=== PATIENT | male | born 1950 | race African-American/Black ===

== ENCOUNTER 2016-11-29 22:54 | Inpatient (IN) ==
[2016-11-30] MEDS ORDERED: PANTOPRAZOLE 40 MG VIAL IV STA (00:30)
[2016-11-30] MEDS ORDERED: PANTOPRAZOLE 40 MG VIAL IV ONE (00:54)
[2016-11-30 00:59] LABS: Basophils % 0.3 % (0.0-0.8); Eosinophils % 0.4 % (0.00-10.9); Hematocrit 21.8 VOL% (42.0-52.0); Immature Granulocytes % 1.5 %; Lymphocytes # 0.5 10*3/uL (1.4-4.0); Lymphocytes % 7.6 % (21.2-54.2); Mean Corpuscular HGB Conc 26.1 GM/DL (32-36); Mean Corpuscular Hemoglobin 19 PG (27-34); Mean Platelet Volume 9.5 FL (9.6-12.0); Monocytes # 0.1 10*3/uL (0.11-0.8); Monocytes % 1.2 % (1.7-12.7); NRBC # 0.03 10*3/uL; Neutrophils # 6.1 10*3/uL (1.4-7.4); Platelet Count 255 T/CUMM (130-400); Red Blood Count 3.07 MC/CUMM (3.8-5.5); Red Cell Distribution Width 22.2 % (9.3-17.3); White Blood Count 6.8 T/CUMM (4-12)
[2016-11-30 01:05] LABS: PT Patient Result 10.5 SECS; Partial Thromboplastin Time < 21.0 SECS (0-40)
[2016-11-30 01:06] LABS: Hemoglobin 5.7 GM/DL (14.0-18.0)
--- NOTE | 2016-11-30 01:13 | EKG Report ---
Stationary ECG Study [facility] ER Test Date: 11/30/2016 1:11:31 AM Pat Name: EDI ALVAREZ Department: Room: 436 Gender: M Side Trimmer: : 1950 Requested by: Michela Buchanan Order Number: [id number] Reading MD: MANOHAR MACK Intervals [place] Rate: 72 P: 59 MS: 161 QRS: 89 QRSD: 98 T: 174 QT: 394 QTc: 418 Interpretive Statements SINUS RHYTHM SEPTAL MYOCARDIAL INFARCTION, OF INDETERMINATE AGE MODERATE T-WAVE ABNORMALITY, CONSIDER ANTEROLATERAL ISCHEMIA Electronically Signed On 11-30-16 21:06:21 CDT by MANOHAR MACK [email or web address]
[2016-11-30 01:16] LABS: Alanine Aminotransferase 22 U/L (16-61); Albumin 4.1 G/DL (3.4-5.0); Alkaline Phosphatase 83 U/L (45-117); Aspartate Amino Transferase 38 U/L (0-37); Bilirubin,Total < 0.39 MG/DL (0.2-1.0); Blood Urea Nitrogen 34 MG/DL (7-18); Glucose 136 MG/DL (74-106); Magnesium 2.6 MG/DL (1.8-2.4); Sodium 146 MMOL/L (136-145); Total Protein 7.3 G/DL (6.4-8.3)
[2016-11-30 01:17] LABS: Osmolality,Calculated 299.6 MOS/KG (273-304); Potassium 5.2 MMOL/L (3.5-5.1)
[2016-11-30] MEDS ORDERED: SODIUM CHLORIDE 0.9% 250 ML IV PRN (01:49)
[2016-11-30] MEDS ORDERED: ONDANSETRON 4 MG/2 ML VIAL IV PRN (01:50)
--- NOTE | 2016-11-30 01:57 | Emergency Department Note ---
Jennifer Shoemaker Hilary, am scribing for, and in the presence of, Michela Bucahnan DO 01:26. Dewayne Shoemaker Catherine, DO, personally performed the services described in this documentation, ascribed by Herminia Rodriguez in my presence, and it is both accurate and complete 153 . Arrival - Arrival Chief Complaint: GI Bleed/Rectal ED Nursing Triage Note: C/O Anemia/GI bleeding. Onset 2 weeks ago. Pt was seen and evaluated at [facility] and was transferred for further evaluation Mode of Arrival: Stretcher Limitations: No Limitations Source: Patient, Old Records Reviewed Time Seen by Provider: 11/29/16 23:52 - History of Present Illness HPI Narrative: Patient is a 66 year old black Male presenting to the ED via EMS with complaint of trouble breathing and blood in his stool. HPI is limited due to currently chewing tobacco and is hard to understand. Patient confirms weakness, "dizziness ", passing out and hematemesis. Patient has a PMH of HTN, frequent EtOH use, former smoker and current chewing tobacco user. Pt was seen and evaluated at [facility] and was transferred for further evaluation. No other complaints or problems reported in the ED. Severity: moderate Quality: cramping Allergies/Adverse Reactions: Allergies Allergy/AdvReac Type Severity Reaction Status Date / Time No Known Allergies Allergy Verified 11/29/16 23:05 Home Medications: Home Medications Medication Instructions Recorded Confirmed Type ALPRAZolam [Xanax] 0.5 mg PO BEDTIME 11/29/16 11/29/16 History Albuterol Inhaler [Proventil 2 puff INH Q6H PRN 11/29/16 11/29/16 History Inhaler] Aspirin [Ecotrin] 81 mg PO DAILY 11/29/16 11/29/16 History Carvedilol [Coreg] 6.25 mg PO BID 11/29/16 11/29/16 History Lisinopril/Hydrochlorothiazide 1 each PO BID 11/29/16 11/29/16 History [Lisinopril-Hctz 10-12.5 mg Tab] Omeprazole 20 mg PO DAILY 11/29/16 11/29/16 History Phenytoin ER Cap [Dilantin Cap] 200 mg PO BID 11/29/16 11/29/16 History Simvastatin 40 mg PO DAILY 11/29/16 11/29/16 History Tramadol HCl [Tramadol Tab] 50 mg PO BID 11/29/16 11/29/16 History amLODIPine [Norvasc] 10 mg PO DAILY 11/29/16 11/29/16 History hydrALAZINE TAB [Apresoline Tab] 50 mg PO BID 11/29/16 11/29/16 History Review of System - Review of System 12 point system: reviewed and no additional remarkable complaints except as stated - Review of System Constitutional: Absent: diaphoresis, fever, weakness Eyes: Absent: discharge Head/Ears/Nose/Throat: Absent: earache Respiratory: Absent: cough, respiratory distress, wheezing Cardiovascular: Absent: chest pain Gastrointestinal: Present: nausea, hematemesis, melena. Absent: vomiting Genitourinary male: Absent: urgency, dysuria, frequency Skin: Absent: rash, lesions Neurological: Present: weakness, vertigo, other (dizziness) Psychiatric: Present: anxiety Medical,Surgical,& Family Hx - Medical History Cardio: History of: Hypertension Respiratory: History of: COPD - Surgical History Surgical History: noncontributory - Family History Family History: noncontributory - Social History Smoking Status: Former smoker Frequency of Alcohol Use: Frequently Type of Drug Use: None Marital Status: Unknown Functional capacity: independent ambulation Exam Vital Signs: Vital Signs Temperature 98.3 F 11/29/16 22:57 Pulse Rate 91 H 11/29/16 22:57 Respiratory Rate 22 11/29/16 22:57 Blood Pressure 138/71 11/29/16 22:57 O2 Sat by Pulse Oximetry 90 L 11/29/16 22:57 - General General appearance: alert, in no apparent distress - Head Head exam: Present: atraumatic, normocephalic - Eye Eye exam: Present: normal appearance, PERRL, EOMI - ENT ENT exam: Present: mucous membranes moist, TM's normal bilaterally - Neck Neck exam: Present: full ROM, trachea midline. Absent: tenderness, meningismus , lymphadenopathy, thyromegaly - Chest Chest inspection: Present: symmetric chest wall rise. Absent: tenderness, rash - Respiratory Respiratory exam: Present: normal lung sounds bilaterally. Absent: respiratory distress - Cardiovascular Cardiovascular exam: Present: regular rate, normal rhythm, normal heart sounds. Absent: murmur, rubs, gallop - Abdominal Exam Abdominal exam: Present: soft, normal bowel sounds. Absent: distention, tenderness, guarding, rebound, organomegaly - Extremities Exam Extremities exam: Present: full ROM, normal capillary refill. Absent: tenderness, pedal edema, calf tenderness - Back Exam Back exam: Present: full ROM. Absent: tenderness - Neurological Exam Neurological exam: Present: alert, oriented X3, CN II-XII intact. Absent: motor sensory deficit - Psychiatric Psychiatric exam: Present: normal affect, flat affect - Skin Skin exam: Present: warm, dry, intact, normal color Course Course Narrative: This is a 66-year-old male who was transferred to the hospital today for admission and evaluation of a possible GI bleed. He presented to another facility for weakness was found to have a low hemoglobin and hematocrit. The patient had a full workup at the prior hospital. At that time his rectal was negative for cold blood. The patient also has COPD he was treated for that at the prior facility. At my evaluation he is somewhat difficult historian and hard to understand but offers no specific complaint. He does report some dizziness with activity. Physical exam his vital signs are stable H HEENT exam is normal he has a mouthful of chewing tobacco at the time of my exam his neck is supple heart is regular rate and rhythm his lungs are clear abdomen is rounded soft is very minimal tenderness pain there's no rebound or guarding his back sounds are normoactive his extremities are intact his neurologic exam is nonfocal. Treatment we repeated his H&H which continues to be low hemoglobin is 5.7. His EKG is unremarkable. He was given IV Protonix. I have spoken to the hospitalist we will be admitting the patient for blood transfusion. - Consultations Consultation #1: Dr. Gilliland int he department at 200 am and he has accepted the admission - I will order a transfusion Results - Labs CBC & BMP: 11/30/16 00:49 11/30/16 00:49 Lab Results: I have reviewed the patients labs Labs: Laboratory Tests 11/30/16 00:49 Sodium 146 H Potassium 5.2 H Chloride 110 H Anion Gap 15.2 H BUN 34 H Creatinine 1.50 H BUN/Creatinine Ratio 22.00 H Glucose 136 H Calcium 8.0 L Magnesium 2.6 H AST 38 H Disposition Clinical Impression: Anemia, GI bleed Case discussed with: patient Disposition: Still a Patient Condition: Stable
[2016-11-30] MEDS ORDERED: SODIUM CHLORIDE 0.9% 1,000 ML IV SCH (02:00)
[2016-11-30] MEDS: PANTOPRAZOLE INJ 200 MG in SODIUM CHLORIDE 0.9% 250 ML IV SCH ×2 (03:17→17:16)
[2016-11-30] MEDS ORDERED: ALBUTEROL 2.5 MG/3 ML NEB RESP TX PRN (03:17)
--- NOTE | 2016-11-30 03:33 | Hospitalist History & Physical ---
Assessment and Plan (1) Anemia Status: Acute Assessment and plan: Patient will be transfused at least 2 units of packed red blood cells this morning. Attempt to bring the hematocrit above 22%. Hopefully there will be an active bleeding. We will monitor him closely in the office in the hospital. Try not to give him too much crystalloids because that will worsen the anemia. Current Visit: Yes (2) GI bleed Status: Acute Assessment and plan: We will get a consultation with gastroenterology for GI evaluation. An order for that has been putting. Repeat H&H every 12 hours for the next 2 days. Patient is being admitted to the service of Dr. Hamm I will make note of that on the chart for his notification tomorrow. Current Visit: Yes (3) Alcoholism /alcohol abuse Status: Acute Assessment and plan: She is on Xanax at this point but he needs to be put on clorazepate on a standing order for this for the next 2 days. This will be most risky. For him to going to delirium tremens. I will try to find if there is a protocol in the hospital if not then he will be put on a standard dosing for alcohol withdrawal. His DVT prophylaxis should use SCDs mechanical DVT prophylaxis. He is high risk for bleeding therefore avoid use chemical prophylaxis. Current Visit: Yes History of Present Illness Chief complaint: Transfer from [place] acute GI bleed History of present illness: Mr. Marcum is a 66 year old male presenting to the ED via EMS with complaint of trouble breathing and blood in his stool. HPI is limited due to currently chewing tobacco and is hard to understand. Patient confirms weakness, "dizziness ", passing out and hematemesis. Patient has a PMH of HTN, frequent EtOH use, former smoker and current chewing tobacco user. Pt was seen and evaluated at [facility] and was transferred for further evaluation. Patient acknowledges heavy drinking 1 pint of whiskey every day is therefore very high risk for alcohol withdrawals. He states that he is bleeding started maybe 3 days ago this when he noticed vomiting up some blood and passing dark stools. The institution of the transferred him here have been documented in the notes that his hemoglobin has dropped from 11-5.7. Information is notes documented on the computer here because he is now being. Home Medications Medication Instructions Recorded Confirmed Type ALPRAZolam [Xanax] 0.5 mg PO BEDTIME 11/29/16 11/29/16 History Albuterol Inhaler [Proventil 2 puff INH Q6H PRN 11/29/16 11/29/16 History Inhaler] Aspirin [Ecotrin] 81 mg PO DAILY 11/29/16 11/29/16 History Carvedilol [Coreg] 6.25 mg PO BID 11/29/16 11/29/16 History Lisinopril/Hydrochlorothiazide 1 each PO BID 11/29/16 11/29/16 History [Lisinopril-Hctz 10-12.5 mg Tab] Omeprazole 20 mg PO DAILY 11/29/16 11/29/16 History Phenytoin ER Cap [Dilantin Cap] 200 mg PO BID 11/29/16 11/29/16 History Simvastatin 40 mg PO DAILY 11/29/16 11/29/16 History Tramadol HCl [Tramadol Tab] 50 mg PO BID 11/29/16 11/29/16 History amLODIPine [Norvasc] 10 mg PO DAILY 11/29/16 11/29/16 History hydrALAZINE TAB [Apresoline Tab] 50 mg PO BID 11/29/16 11/29/16 History Allergies Allergy/AdvReac Type Severity Reaction Status Date / Time No Known Allergies Allergy Verified 11/29/16 23:05 Medical,Surgical,& Family Hx - Medical History Cardio: History of: Hypertension Respiratory: History of: COPD - Social History Smoking Status: Former smoker Frequency of Alcohol Use: Frequently Type of Drug Use: None - Constitutional Constitutional: Present: other (Denies fever chills arthritis patient also is a very poor historian but does acknowledge to be tired a lot) - EENT Eyes: Present: other (Dusky is clear) - Cardiovascular Cardiovascular: Present: other (Denies any chest pain no chest pressure is no lightheadedness at this point but has had it prior to coming to the hospital) - Respiratory Respiratory: Present: other (Totally unremarkable at this point) - Gastrointestinal Gastrointestinal: Present: hematemesis, melena - Genitourinary Genitourinary: Present: other (Unremarkable symptomatically) - Musculoskeletal Musculoskeletal: Present: other (Generalized weakness and arthralgias) - Neurological Neurological: Present: other (Noted dysarthria and poor organization of concepts difficult for him to give a history) - Hematologic/Lymphatic Hematologic/Lymphatic: Present: other (Profound anemia GI bleed) Exam - Constitutional Vitals: Period Temp Pulse Resp BP Sys/Wolff Pulse Ox Last 24 Hr 69 20 101/64 98 General appearance: normal weight, other (Very unkept man) - Head Head exam: Present: normocephalic, other (Normal male pattern alopecia) - Eye Eye exam: Present: EOMI Pupils: Present: BROCK - ENT ENT exam: Present: normal oropharynx, other (Dental recession) - Neck Neck exam: Present: normal inspection, other (No JVD no adenopathy midline trachea) - Respiratory Respiratory exam: Present: clear to auscultation bilaterally, other (No wheezing no rales) - Cardiovascular Cardiovascular exam: Present: regular rate and rhythm - GI/Abdominal GI/Abdominal exam: Present: normal bowel sounds, soft, other (There is no guarding) - Extremities Exam Extremities exam: Present: other (Toenail hypertrophy is noted with presence of onychomycosis and dermatophytosis) - Neurological Exam Neurological exam: Present: other (Patient is awake and oriented has a significant dysarthria I wonder if he is a had a stroke in the past. He says he can walk about his legs of generalized weakness.) - Psychiatric Psychiatric exam: Present: other (Poor organization of facts very poor historian ) - Skin Skin exam: Present: other (Toenail hypertrophy. Skin scales in the feet) Results - Labs CBC & BMP: 11/30/16 00:49 11/30/16 00:49 Lab Results: I have reviewed the past 24 hour labs
[2016-11-30 04:23] LABS: Hypochromasia 2+; Ovalocytes Few; Platelet Estimate Normal; Poikilocytosis 1+; Polychromasia Slight; Tear Drop Cells Few
[2016-11-30] MEDS: PHENYTOIN ER 100 MG CAPSULE PO SCH ×2 (08:57→20:41)
[2016-11-30] MEDS ORDERED: LISINOPRIL/HCTZ 10-12.5 MG TABLET PO SCH (09:00)
[2016-11-30] MEDS ORDERED: ASPIRIN EC 81 MG TABLET PO SCH (09:00)
[2016-11-30] MEDS ORDERED: CLORAZEPATE 7.5 MG TABLET PO SCH (09:00)
[2016-11-30] MEDS ORDERED: traMADol 50 MG TABLET PO SCH (09:00)
[2016-11-30] MEDS ORDERED: CARVEDILOL 6.25 MG TABLET PO SCH (09:00)
[2016-11-30] MEDS ORDERED: amLODIPine 10 MG TABLET PO SCH (09:00)
--- NOTE | 2016-11-30 09:40 | Gastrointestinal Consult Note ---
Assessment and Plan - Time spent with patient Time spent with patient: Greater than 30 minutes (1) Hematochezia Status: Acute Current Visit: Yes (2) Abdominal pain Status: Acute Current Visit: Yes (3) Anemia Status: Acute Current Visit: Yes (4) Alcoholism /alcohol abuse Status: Acute Current Visit: Yes (5) Other specified counseling Status: Acute Current Visit: Yes History of Present Illness History of present illness: Mr. Marcum is a 66 year old male Home Medications Medication Instructions Recorded Confirmed Type ALPRAZolam [Xanax] 0.5 mg PO BEDTIME 11/29/16 11/29/16 History Albuterol Inhaler [Proventil 2 puff INH Q6H PRN 11/29/16 11/29/16 History Inhaler] Aspirin [Ecotrin] 81 mg PO DAILY 11/29/16 11/29/16 History Carvedilol [Coreg] 6.25 mg PO BID 11/29/16 11/29/16 History Lisinopril/Hydrochlorothiazide 1 each PO BID 11/29/16 11/29/16 History [Lisinopril-Hctz 10-12.5 mg Tab] Omeprazole 20 mg PO DAILY 11/29/16 11/29/16 History Phenytoin ER Cap [Dilantin Cap] 200 mg PO BID 11/29/16 11/29/16 History Simvastatin 40 mg PO DAILY 11/29/16 11/29/16 History Tramadol HCl [Tramadol Tab] 50 mg PO BID 11/29/16 11/29/16 History amLODIPine [Norvasc] 10 mg PO DAILY 11/29/16 11/29/16 History hydrALAZINE TAB [Apresoline Tab] 50 mg PO BID 11/29/16 11/29/16 History Allergies Allergy/AdvReac Type Severity Reaction Status Date / Time No Known Allergies Allergy Verified 11/29/16 23:05 Medical,Surgical,& Family Hx - Medical History Cardio: History of: Hypertension Respiratory: History of: COPD - Social History Smoking Status: Former smoker Frequency of Alcohol Use: Frequently Type of Drug Use: None Exam - Constitutional Vitals: Period Temp Pulse Resp BP Sys/Wolff Pulse Ox Last 24 Hr 97.7 F-98.6 F 55-75 17-20 101-140/59-70 96-100 Results - Labs CBC & BMP: 11/30/16 00:49 11/30/16 00:49 Note Addendum: PLEASE NOTE -- automatic citation of patient information is unavoidable in this electronic note. I have made a reasonable effort to review the information cited , but it is not a part of my evaluation, impression, or recommendation unless specifically discussed in the dictated text that follows. As well, voice recognition software was used in the creation of this clinical note. Reasonable effort was made to identify and correct gross errors. Despite proofreading, errors in nursing attendant may be present, including nonsense verbiage at times. If you encounter such an error, please contact me at [phone] for discussion and correction. -- Cece Chief complaint: gastrointestinal bleeding History of present illness: this is a new patient, a 66-year-old male seen by consultation for evaluation of blood in the stool with symptomatic anemia. The patient is admitted to the hospitalist team under the care of Dr. Lock with a primary diagnosis of symptomatic anemia. Dr. Lock called this morning saying that the patient seems to be getting worse and is specifically reporting worsening abdominal pain. The patient was admitted through the emergency department last evening having been brought in by ambulance from [facility] with complaint of difficulty breathing and bright blood in his stool. The patient reported having passed out at one point. The patient is a long-term heavy alcohol user with more than 1 pint of liquor per day. Initial lab work demonstrated hemoglobin less than 6 g/dL and microcytosis. The patient received crystalloid resuscitation, two units of packed red blood cells, proton pump inhibitor, and Solu-Medrol along with other supportive measures. No bowel movements were documented overnight and the patient confirms he has not had a bowel movement today. He has not had nausea or vomiting during this entire episode. He reports near daily use of NSAID for control of back pain. He does continue with intermittent diffuse abdominal pain but is not having any pain right at the moment. He has been transferred to the intensive care unit for closer monitoring. [Patient denies fever, chills, night sweats, neck pain, visual changes, redness of the eyes, dysphagia, odynophagia, difficulty chewing, chest pain, weight loss , proctalgia, constipation, dysuria, skin changes, temperature regulation issues , flushing, mental status change, numbness/weakness in the extremities, yellowing of the eyes/skin, cutaneous eruptions, family history of gastrointestinal cancer and colon polyps, and other complaints in general.] Review of systems: 12 point review of systems was negative except as documented above. Outpatient medications: hydralazine, Norvasc, tramadol, simvastatin, Dilantin, omeprazole, lisinopril/hydrochlorothiazide, Coreg, aspirin, Proventil, Xanax Inpatient medications: provincial, Duoneb, transient, Solu-Medrol, Zofran, pantoprazole, Dilantin, normal saline infusion Past Medical History: hypertension, chronic obstructive pulmonary disease, alcoholism Social history: positive smokeless tobacco. Daily alcohol Family history: No gastrointestinal cancers Physical examination: Vital Signs: Current vital signs reviewed and documented above. General Appearance: lying in bed. Somewhat uncomfortable. No acute distress. Head: Normocephalic. Neck: Palpation of the neck revealed no abnormalities. Eyes: No scleral icterus. No scleral injection. No conjunctival pallor. Oral Cavity: Odor of breath was normal. No drooling was observed. Dentition was extremely poor. Lips showed no abnormalities. Floor of the mouth showed no abnormalities. Pharynx: Oropharynx was normal. Lungs: Respiration rhythm and depth was normal. Cardiovascular: Heart rate and rhythm were normal. No murmurs were appreciated. Abdomen: [Abdomen was not distended.] Abdominal palpation revealed moderate diffuse tenderness with some involuntary guarding but no hepatosplenomegaly.Patient denies fever, chills, night sweats, neck pain, visual changes, redness of the eyes, dysphagia, odynophagia, difficulty chewing , chest pain, weight loss, proctalgia, constipation, dysuria, skin changes, temperature regulation issues, flushing, mental status change, numbness/ weakness in the extremities, yellowing of the eyes/skin, cutaneous eruptions, family history of gastrointestinal cancer and colon polyps, and other complaints in general.no gastrointestinal cancersabdomen was not distended. Ascites was not discovered. Abdominal auscultation revealed positive bowel sounds. Musculoskeletal System: Musculoskeletal system was grossly normal. Neurological: level of consciousness was normal. Speech was normal. Skin: General appearance was normal. Color and pigmentation were normal. No skin lesions. Laboratory: white blood count 6.8, hemoglobin 5.7, hematocrit 21.8, platelets 255, MCV 71, INR 1.0, PT 10.5, sodium 146, potassium 5.2, BUN 34, creatinine 1.5 , ALT 22, AST 38, alkaline phosphatase 83, albumin 4.1, total protein 7.3 Radiology: reviewed Impressions: 1. Gastrointestinal bleeding, indeterminate -- the differential diagnosis includes peptic ulcer, gastritis/esophagitis generally, esophageal/gastric varices, ischemic colitis, diverticular bleeding, infectious/inflammatory enterocolitis, arteriovenous malformation, hemorrhoidal bleeding, colon polyps ( including cancer), and others. I recommend aggressive crystalloid resuscitation in addition to transfusion as indicated. I recommend serial hemoglobin and hematocrit monitoring. I recommend intravenous proton pump inhibitor. There is not great clinical support for variceal bleeding, neither for portal hypertension, so I would not start octreotide at this point. I do recommend a CT scan of the abdomen and pelvis, with contrast if feasible, to ensure no evidence of gut -related ischemia. Patient will need upper endoscopy with timing dependent on clinical progress, likely tomorrow. If no culprit lesion on upper endoscopy or diagnostic findings on CT, we will need to pursue colonoscopy as well. 2. Abdominal pain -- as discussed above, this is consistent with peptic ulcer but the patient is also expressing pain "out of proportion to physical exam." I recommend CT evaluation and lactic acid screen with surgical consultation as indicated. 3. Symptomatic anemia -- likely from acute blood loss plus or minus chronic disease. Patient will need to be monitored and managed both while admitted and after discharge. 4. Alcohol use disorder -- patient has been advised that continued alcohol use will lead to continued difficulty in this regard and is a primary race factor for hepatic cirrhosis and early . The patient has expressed understanding and will take this under advisement. Patient monitor for evidence of delirium tremens and treated as appropriate. 5. Other specified counseling: The patient was seen for greater than 30 minutes. The patient was counseled for greater than 50% of this time regarding differential diagnosis, likely diagnosis, diagnostic and therapeutic alternatives, risks/benefits/alternatives of medications and procedures, and plan of care generally. The patient expressed understanding and wishes to proceed. Recommendations: -- aggressive crystalloid resuscitation -- transfusion as indicated -- serial hemoglobin and hematocrit monitoring -- continue proton pump inhibitor -- CT of the abdomen and pelvis, with contrast if feasible -- lactate screen -- upper endoscopy with timing dependent on clinical progress, likely tomorrow -- colonoscopy as indicated by other findings -- surgical consultation with any evidence of gut-related ischemia -- thank you for consultation. Dr. Munoz will assume G.I. care for this patient tomorrow.
[2016-11-30] MEDS: methylPREDNISolone SOD SUC 125 MG/2 ML VIAL IV SCH ×3 (09:43→20:41)
--- NOTE | 2016-11-30 10:30 | XRay Report ---
Exam: XR chest 1V portable Date: 11/30/2016 9:16 AM Indication: Shortness of breath Comparison: None Technical: AP portable Findings: Cardiomegaly is present with some underlying alveolar interstitial densities left greater than right. No obvious effusion. Arthritic change present at the shoulders at the AC joints bilaterally with significant spurring right greater than left. Thoracic spine is demonstrated with lateral marginal osteophytes with previous cholecystectomy clips in the upper abdomen Impression: 1. Cardiomegaly 2. Mild interstitial edema 3. Prior cholecystectomy 4. Arthritic change of the shoulders bilaterally PROCEDURE INTERPRETED AT [facility] DEPARTMENT OF RADIOLOGY Final Report Signed by: Dr. Baltazar Sun
[2016-11-30 10:44] LABS: ABG HCO3 24.4 MMOL/L (20-26); ABG Oxygen Saturation 91.2 % (95-100); ABG PCO2 58.4 MM HG (35-48); ABG PH 7.279 (7.35-7.45); ABG PO2 65.7 MM HG (80-95)
[2016-11-30] MEDS: ALBUTEROL/IPRATROPIUM 3 ML NEB RESP TX SCH ×4 (11:19→23:23)
[2016-11-30 11:39] LABS: Apearance,Urine CLEAR (Clear); Bacteria,Urine Occasional /HPF (Few); Bilirubin,Urine Negative (Negative); Blood, Urine Small mg/dL (Negative); Glucose,Urine (UA) Negative (Negative); Ketones,Urine Negative (Negative); Mucus,Urine Occasional /LPF (Occasional); Nitrite,Urine Negative (Negative); Protein,Urine Negative; RBC,Urine 1 /HPF (0-4); Urine Color Straw (Yellow); Urine Specific Gravity 1.008 (1.001-1.035); Urine Urobilinogen < 2.0 EU/DL (0.2-1.0); WBC,Urine <1 /HPF (0-6)
[2016-11-30 11:55] LABS: Hematocrit 29.5 VOL% (42.0-52.0); Hemoglobin 8.2 GM/DL (14.0-18.0)
--- NOTE | 2016-11-30 12:31 | Hospitalist Progress Note ---
Assessment and Plan (1) Acute blood loss anemia Status: Acute Assessment and plan: Patient received 2 units packed red blood cells. His repeat hemoglobin was 8.2. We will plan an EGD for in a.m. Current Visit: Yes (2) Hypotension Status: Acute Assessment and plan: Improved with blood transfusion. We will hold his Coreg, Norvasc, hydralazine, lisinopril Current Visit: Yes (3) Acute renal failure Status: Acute Assessment and plan: Renal ultrasound, unable to tolerate fluids Current Visit: Yes (4) Hyperkalemia Status: Acute Assessment and plan: We will monitor for now. Current Visit: Yes (5) GI bleed Status: Acute Assessment and plan: Most likely secondary to peptic ulcer disease continue Protonix IV plan for EGD in a.m. Current Visit: Yes (6) Alcoholism /alcohol abuse Status: Acute Assessment and plan: Elevated AST but platelets still okay. We will give thiamine, folate and multivitamin Current Visit: Yes (7) Seizures Status: Acute Assessment and plan: Continue Dilantin twice daily, will check Dilantin level in a.m. Current Visit: Yes Hospitalist: Subjective Interval history: Patient is breathing on the floor became more labored and his blood pressure is low. Patient was receiving his second unit of packed red blood cells. We have held all his blood pressure medicines and his aspirin. I personally spoke with Dr. Zhao about his case as I was concerned that he may require EGD sooner versus later. Dr. Zhao his seen him and asked me to get a CT of his abdomen and lactic acid but he feels that patient probably does have peptic ulcer disease and will do the EGD in a.m. we have moved him to the CCU this morning. Patient was a smoker but quit. He does drink daily. Exam - Constitutional Vitals: Period Temp Pulse Resp BP Sys/Wolff Pulse Ox Last 24 Hr 97.6 F-98.6 F 55-75 13-22 101-141/59-84 89-100 Exam: Heart Rate-[RRR] Lungs-[diminished and wheezy bilateral] GI-[+bs soft, NT] Ext-[no edema] Neuro [lethargic not answering questions well, slurring of his speech] psych [depressed mood and affect] General [no acute distress] Results - Labs CBC & BMP: 11/30/16 11:49 04/02/17 00:49 Lab Results: I have reviewed the past 24 hour labs - Diagnostic Findings Procedure: Chest x-ray: report reviewed by me (Interstitial edema and cardiomegaly)
[2016-11-30] MEDS ORDERED: FUROSEMIDE 20 MG/2 ML VIAL IV ONE (12:33)
--- NOTE | 2016-11-30 14:06 | CT Report ---
Exam: CT abdomen pelvis w con Date: 11/30/2016 11:17 AM Comparison: None Indication: Abdominal pain Total DLP: 443.7 mGy*cm Technical: Images were obtained from the lung bases to the iliac crest continuation through the pelvis with 100 cc of Omnipaque 350 with axial sagittal coronal imaging available for review. Dose reduction was performed with decreasing kv and mA and automated exposure Findings: Lung bases: Minimal pleural thickening and tiny low volume effusion right base. Minimal pleural thickening left base. Mild cardiac enlargement is present. Liver and Spleen: Unremarkable Gallbladder and Pancreas: Prior cholecystectomy. The pancreas is unremarkable. Adrenals: Unremarkable Kidneys: Low density is present in the medial aspect of the right kidney measures approximately 19 mm. Smaller cystic changes are present on the posterior lateral aspect of the right kidney measuring up to approximately 1 cm. The left kidney reveals multiple small cyst present the largest measures 1.3 cm. Smaller cyst are present posteriorly and medially normal excretion is present to the bladder Stomach: Incomplete distended with fluid and air and debris Retroperitoneum: No enlarged lymph nodes. Aorta and IVC: Vascular plaque in the aorta iliac vessels with mild dolichoectasia aorta measures up to approximately 2.8 x 2.8 cm. The IVC is patent Bowel and Mesentery: Moderate stool and debris present. No obvious diverticulosis diverticulitis or appendicitis present Pelvis: Bladder: Orellana catheter is in the bladder small amount of air and contrast fluid Fluid: No free fluid identified. Lymph nodes: Right inguinal canal hernia containing fat is present. Bowel extends to the proximal aspect of the inguinal canal no obstruction present Pelvic organs: Phleboliths are present. The prostate gland is otherwise unremarkable. Osseous structures: No suspicious appearing osseous abnormalities noted. Impression: 1. Right inguinal canal hernia containing a small amount of bowel without strangulation. Fat is also present. 2. Vascular calcinosis in the aorta 3. Tiny effusions and atelectatic change in both bases right greater than left 4. Previous cholecystectomy PROCEDURE INTERPRETED AT [facility] DEPARTMENT OF RADIOLOGY Final Report Signed by: Dr. Baltazar Sun
[2016-11-30] MEDS: CLORAZEPATE 7.5 MG TABLET PO PRN (14:11)
[2016-11-30] MEDS: THIAMINE 100 MG TABLET PO SCH (14:11)
[2016-11-30] MEDS: FOLIC ACID 1 MG TABLET PO SCH (14:11)
[2016-11-30 20:44] LABS: Hematocrit 29.2 VOL% (42.0-52.0)
[2016-11-30 20:46] LABS: Hemoglobin 8.2 GM/DL (14.0-18.0)
[2016-11-30] MEDS ORDERED: ALPRAZolam 0.5 MG TABLET PO SCH (21:00)
[2016-12-01] MEDS: ALBUTEROL/IPRATROPIUM 3 ML NEB RESP TX SCH ×6 (03:50→23:18)
[2016-12-01] MEDS: methylPREDNISolone SOD SUC 125 MG/2 ML VIAL IV SCH ×4 (04:16→20:53)
[2016-12-01 04:48] LABS: Basophils % 0.1 % (0.0-0.8); Hematocrit 27.1 VOL% (42.0-52.0); Immature Granulocytes % 0.5 %; Immature Granulocytes Absolute 0.05 #; Lymphocytes # 0.7 10*3/uL (1.4-4.0); Lymphocytes % 6.2 % (21.2-54.2); Mean Corpuscular Hemoglobin 21 PG (27-34); Mean Corpuscular Volume 74.9 FL (87-102); Mean Platelet Volume 10.1 FL (9.6-12.0); Monocytes # 0.4 10*3/uL (0.11-0.8); Monocytes % 3.4 % (1.7-12.7); NRBC # 0.03 10*3/uL; Neutrophils # 9.7 10*3/uL (1.4-7.4); Neutrophils % 89.8 % (38.7-73.9); Platelet Count 131 T/CUMM (130-400); Red Blood Count 3.62 MC/CUMM (3.8-5.5); White Blood Count 10.8 T/CUMM (4-12)
[2016-12-01 05:03] LABS: Hemoglobin 7.8 GM/DL (14.0-18.0)
[2016-12-01] MEDS ORDERED: SODIUM CHLORIDE 0.9% 250 ML IV PRN (05:12)
[2016-12-01 05:18] LABS: Alanine Aminotransferase 17 U/L (16-61); Albumin 3.8 G/DL (3.4-5.0); Alkaline Phosphatase 75 U/L (45-117); Aspartate Amino Transferase 12 U/L (0-37); Bilirubin,Total < 0.39 MG/DL (0.2-1.0); Blood Urea Nitrogen 22 MG/DL (7-18); Calcium 8.5 MG/DL (8.5-10.1); Glucose 118 MG/DL (74-106); Potassium 5.3 MMOL/L (3.5-5.1); Sodium 143 MMOL/L (136-145); Total Protein 6.6 G/DL (6.4-8.3)
[2016-12-01 05:19] LABS: Band Neutrophils 1 % (0-10); Hypochromasia 2+; Lymphocytes 6 % (20-55); Ovalocytes Slight; Platelet Estimate Normal; Polychromasia Slight; Segmented Neutrophils 92 % (50-85); Total Cells Counted 100
[2016-12-01] MEDS: CLORAZEPATE 7.5 MG TABLET PO PRN (07:45)
[2016-12-01] MEDS ORDERED: PROPOFOL 0 MG/0 ML BOTTLE IV ONE (09:24)
[2016-12-01] MEDS: FOLIC ACID 1 MG TABLET PO SCH (09:44)
[2016-12-01] MEDS: PHENYTOIN ER 100 MG CAPSULE PO SCH ×2 (09:44→20:53)
[2016-12-01] MEDS: THIAMINE 100 MG TABLET PO SCH (09:44)
--- NOTE | 2016-12-01 10:37 | Hospitalist Progress Note ---
Assessment and Plan (1) GI bleed Status: Acute Assessment and plan: 1)UGIB- EGD this morning. He had some spitting up blood prior to admission and has had melena. On second unit of transfusion, then will have H&H. 2)alcohol withdrawal- change to librium from low dose tranxene. He is entering period of time when risk of DTs increases. monitor closely. 3)HTN- controlled 4)snuff user- offer nicotine patch daily. Current Visit: Yes (2) Alcoholism /alcohol abuse Status: Acute Current Visit: Yes (3) Hematochezia Status: Acute Current Visit: Yes (4) Abdominal pain Status: Acute Current Visit: Yes (5) Other specified counseling Status: Acute Current Visit: Yes (6) Hypotension Status: Acute Current Visit: Yes (7) Acute renal failure Status: Acute Current Visit: Yes (8) Hyperkalemia Status: Acute Current Visit: Yes (9) Acute blood loss anemia Status: Acute Current Visit: Yes (10) Seizures Status: Chronic Current Visit: Yes Hospitalist: Subjective Interval history: Mr Marcum has not had any hematemesis since admission, but has had melena. He is a daily drinker of at least a pint of liquor a day. This morning he is a little agitated, but vitals look ok, and he is alert and answering questions appropriately. Exam - Constitutional Vitals: Period Temp Pulse Resp BP Sys/Wolff Pulse Ox Last 24 Hr 96.8 F-98.6 F 53-98 13-26 93-151/58-84 58-100 General appearance: normal weight, no acute distress - Head Head exam: Present: normocephalic, atraumatic - Eye Eye exam: Present: EOMI. Absent: scleral icterus - Respiratory Respiratory exam: Present: clear to auscultation bilaterally - Cardiovascular Cardiovascular exam: Present: regular rate and rhythm - GI/Abdominal GI/Abdominal exam: Present: normal bowel sounds, soft. Absent: tenderness - Extremities Exam Extremities exam: Absent: edema - Neurological Exam Neurological exam: Present: alert, oriented X3, other (mild tremor) - Skin Skin exam: Present: warm, dry Results - Labs CBC & BMP: 12/01/16 04:16 12/01/16 04:15 Lab Results: I have reviewed the past 24 hour labs
[2016-12-01] MEDS ORDERED: LIDOCAINE 2% 5 ML VIAL ONE (12:19)
[2016-12-01] MEDS ORDERED: PROPOFOL 200 MG/20 ML VIAL IV ONE (12:19)
--- NOTE | 2016-12-01 12:26 | History and Physical Update ---
History and Physical Update - Physical Exam Mental Status: alert and oriented Heart: regular rate and rhythm Lung: clear to auscultation Abdomen: within normal limits Vitals: within normal limits
--- NOTE | 2016-12-01 12:32 | Operative Note ---
Date of procedure: 12/01/16 Pre-op diagnosis: Anemia with history of alcohol abuse Procedure: EGD 66-year-old gentleman with complaints of abdominal pain anemia with ongoing alcohol and tobacco abuse. Now for upper endoscopy to further evaluate the above. Informed symptoms obtained patient He was sedated with MAC anesthesia per anesthesia protocol. Patient placed in left lateral decubitus position the Olympus flexible video upper endoscope was inserted into the oral cavity under direct vision the esophagus was intubated. Findings: Esophagus-normal proximal esophageal mucosa in the midesophagus is an area of severe erosive esophagitis appears to be where a pill or some other foreign body was lodged repeat exam with kissing ulcers on both sides of the esophagus. No clear malignancy is noted biopsies were not taken. Distal esophagus showed hiatal hernia but no significant esophageal varices or esophagitis were seen making it less likely that the mid findings are related to acid reflux but more likely a Kalt tablet. Stomach-normal insufflation mild gastritis is seen and there is no portal hypertensive gastropathy or gastric varices identified. No ulcers were seen. Pylorus normal Duodenum duodenitis is noted no blood is present. Small duodenal ulcer was identified. No visible vessel no active bleeding. The procedure terminated placed our procedure well discharge recovery in good condition. Postop diagnosis: 1. Erosive esophagitis suspect pill induced. Continue with high-dose PPI treatment to minimize acid reflux injury add Carafate if needed for pain. Plan repeat EGD in 2 months. 2. Gastritis with duodenitis superficial ulceration-stop nonsteroidals and alcohol continue PPI treatment. 3. Alcoholism patient is poorly motivated in receiving treatment. Anesthesia: [place] Surgeon / Physician: Paulino Munoz Estimated blood loss: none Specimens: none sent Condition: stable Disposition: post procedure unit Results - Labs CBC & BMP: 12/01/16 04:16 12/01/16 04:15 Discharge Plan - Discharge Medications No Action Tramadol HCl [Tramadol Tab] 50 mg PO BID amLODIPine [Norvasc] 10 mg PO DAILY Phenytoin ER Cap [Dilantin Cap] 200 mg PO BID Albuterol Inhaler [Proventil Inhaler] 2 puff INH Q6H PRN PRN Reason: Shortness Of Breath/Wheezing Simvastatin 40 mg PO DAILY Omeprazole 20 mg PO DAILY Lisinopril/Hydrochlorothiazide [Lisinopril-Hctz 10-12.5 mg Tab] 1 each PO BID ALPRAZolam [Xanax] 0.5 mg PO BEDTIME Aspirin [Ecotrin] 81 mg PO DAILY hydrALAZINE TAB [Apresoline Tab] 50 mg PO BID Carvedilol [Coreg] 6.25 mg PO BID - Follow Up or Referral - Forms/Instructions
--- NOTE | 2016-12-01 12:37 | Anesthesia ---
Anesthesia Post OP - Post Ansesthetic Evaluation Patient seen in post op: Yes Resp: within normal limits CV: within normal limits Mental: within normal limits Temp: within normal limits [id number]: within normal limits Nausea and Vomiting: within normal limits Pain: within normal limits
[2016-12-01] MEDS: chlordiazePOXIDE 10 MG CAPSULE PO SCH ×2 (15:15→20:53)
[2016-12-01] MEDS: PANTOPRAZOLE INJ 200 MG in SODIUM CHLORIDE 0.9% 250 ML IV SCH (18:10)
[2016-12-02] MEDS: ALBUTEROL/IPRATROPIUM 3 ML NEB RESP TX SCH ×6 (02:58→23:39)
[2016-12-02] MEDS: methylPREDNISolone SOD SUC 125 MG/2 ML VIAL IV SCH ×4 (04:27→20:03)
[2016-12-02 05:44] LABS: Calcium 8.4 MG/DL (8.5-10.1); Osmolality,Calculated 291.7 MOS/KG (273-304); Potassium 4.5 MMOL/L (3.5-5.1)
[2016-12-02 05:46] LABS: Albumin 3.5 G/DL (3.4-5.0); Bilirubin,Total 0.6 MG/DL (0.2-1.0); Calcium 8.3 MG/DL (8.5-10.1); Osmolality,Calculated 293.6 MOS/KG (273-304); Potassium 4.5 MMOL/L (3.5-5.1); Total Protein 6.6 G/DL (6.4-8.3)
[2016-12-02 05:49] LABS: Hematocrit 34.9 VOL% (42.0-52.0); Hemoglobin 10.3 GM/DL (14.0-18.0); Immature Granulocytes % 0.7 %; Immature Granulocytes Absolute 0.05 #; Lymphocytes # 0.6 10*3/uL (1.4-4.0); Lymphocytes % 9.1 % (21.2-54.2); Mean Corpuscular HGB Conc 29.5 GM/DL (32-36); Mean Corpuscular Hemoglobin 23 PG (27-34); Mean Corpuscular Volume 79.1 FL (87-102); Mean Platelet Volume 8.8 FL (9.6-12.0); Monocytes # 0.3 10*3/uL (0.11-0.8); Monocytes % 3.9 % (1.7-12.7); Neutrophils # 5.8 10*3/uL (1.4-7.4); Neutrophils % 86.3 % (38.7-73.9); Red Cell Distribution Width 22.7 % (9.3-17.3)
[2016-12-02 05:50] LABS: Platelet Count 161 T/CUMM (130-400); Red Blood Count 4.41 MC/CUMM (3.8-5.5); White Blood Count 6.7 T/CUMM (4-12)
[2016-12-02 05:53] LABS: Elliptocytes Few; Hypochromasia 1+; Platelet Estimate Normal
[2016-12-02] MEDS: NICOTINE 21 MG/24 HR PATCH TRANSDERM PRN (09:45)
[2016-12-02] MEDS: PHENYTOIN ER 100 MG CAPSULE PO SCH ×2 (09:46→20:02)
[2016-12-02] MEDS: THIAMINE 100 MG TABLET PO SCH (09:46)
[2016-12-02] MEDS: FOLIC ACID 1 MG TABLET PO SCH (09:46)
[2016-12-02] MEDS: chlordiazePOXIDE 10 MG CAPSULE PO SCH ×3 (09:46→20:03)
--- NOTE | 2016-12-02 10:17 | Hospitalist Progress Note ---
Assessment and Plan (1) GI bleed Status: Acute Assessment and plan: 1)UGIB with acute blood loss anemia from gastitis and erosive esophagitis duodenitis- advance diet. on PPI IV. 2)alcohol dependence and addiction with withdrawal symptoms- managed with librium. He wants alcohol rehab- refer to SW. 3)HTN- controlled 4)snuff user- has nicotine patch. Current Visit: Yes (2) Alcoholism /alcohol abuse Status: Acute Current Visit: Yes (3) Hematochezia Status: Acute Current Visit: Yes (4) Abdominal pain Status: Acute Current Visit: Yes (5) Other specified counseling Status: Acute Current Visit: Yes (6) Hypotension Status: Acute Current Visit: Yes (7) Acute renal failure Status: Acute Current Visit: Yes (8) Hyperkalemia Status: Acute Current Visit: Yes (9) Acute blood loss anemia Status: Acute Current Visit: Yes (10) Seizures Status: Chronic Current Visit: Yes Hospitalist: Subjective Interval history: Mr Marcum is doing well. No sign of continued bleeding. He is eating clear liquids. No tremulousness. Denies feeling of withdrawal. Exam - Constitutional Vitals: Period Temp Pulse Resp BP Sys/Wolff Pulse Ox Last 24 Hr 97.5 F-97.8 F 48-78 15-69 123-152/70-078 94-100 General appearance: normal weight, no acute distress - Head Head exam: Present: normocephalic, atraumatic - Eye Eye exam: Present: other (poor dentition) - Respiratory Respiratory exam: Present: clear to auscultation bilaterally - Cardiovascular Cardiovascular exam: Present: regular rate and rhythm - GI/Abdominal GI/Abdominal exam: Present: normal bowel sounds, soft. Absent: tenderness - Extremities Exam Extremities exam: Absent: edema - Neurological Exam Neurological exam: Present: alert, oriented X3 - Skin Skin exam: Present: warm, dry Results - Labs CBC & BMP: 12/02/16 04:27 12/02/16 04:27 Lab Results: I have reviewed the past 24 hour labs
--- NOTE | 2016-12-02 11:18 | Gastrointestinal Progress Note ---
<Alma Leon - Last Filed: 12/02/16 11:16> Assessment and Plan (1) Abdominal pain Status: Acute Assessment and plan: 12/02-EGD findings noted. Hemoglobin stable at 10.3. To be transferred to floor today. Advance to full liquids. Plan an addendum to follow by Dr. Munoz. Current Visit: Yes Gastroenterology - PN: Subj Interval history: CC: Anemia Patient is seen awake and alert. States he is feeling some better today. Denies any abdominal pain, nausea or vomiting. States he has a good appetite and is wanting more to eat. EGD findings noted. Hemoglobin is holding at 10.3. Patient has received a total of 4 units of blood however no further transfusions since yesterday. Abdomen soft, nontender. He is to be transferred to the floor today. ROS: Denies shortness of breath or chest pain. Exam (Progress Note) - Constitutional Vitals: Period Temp Pulse Resp BP Sys/Wolff Pulse Ox Last 24 Hr 97.1 F-97.8 F 48-78 15-69 123-165/69-85 94-100 General appearance: normal weight, no acute distress - Head Head exam: Present: normal inspection, normocephalic - Eye Eye exam: Present: other (Lids and conjunctivae unremarkable). Absent: scleral icterus - ENT ENT exam: Present: normal exam, normal oropharynx - Neck Neck exam: Present: normal inspection - Respiratory Respiratory exam: Present: clear to auscultation bilaterally. Absent: rales, rhonchi, wheezes - Cardiovascular Cardiovascular exam: Present: regular rate and rhythm. Absent: diastolic murmur , JVD, systolic murmur - GI/Abdominal GI/Abdominal exam: Present: normal bowel sounds, soft. Absent: ascites, distended, mass, organomegaly, tenderness - Extremities Exam Extremities exam: Present: normal inspection, full ROM - Back Exam Back exam: Present: normal inspection - Neurological Exam Neurological exam: Present: alert, oriented X3 - Psychiatric Psychiatric exam: Present: normal affect, normal mood - Skin Skin exam: Present: normal color, warm, dry Results - Labs CBC & BMP: 12/02/16 04:27 12/02/16 04:27 Lab Results: I have reviewed the past 24 hour labs <Paulino Munoz - Last Filed: 12/02/16 17:11> Exam (Progress Note) - Constitutional Vitals: Period Temp Pulse Resp BP Sys/Wolff Pulse Ox Last 24 Hr 97.1 F-99.6 F 48-81 15-69 123-165/69-85 94-100 Results - Labs CBC & BMP: 12/02/16 04:27 12/02/16 04:27
[2016-12-02] MEDS: PANTOPRAZOLE INJ 200 MG in SODIUM CHLORIDE 0.9% 250 ML IV SCH (23:24)
[2016-12-03] MEDS: methylPREDNISolone SOD SUC 125 MG/2 ML VIAL IV SCH ×3 (02:08→21:14)
[2016-12-03] MEDS: ALBUTEROL/IPRATROPIUM 3 ML NEB RESP TX SCH ×6 (03:45→23:42)
[2016-12-03 06:31] LABS: Albumin 3.7 G/DL (3.4-5.0); Bilirubin,Total 0.6 MG/DL (0.2-1.0); Calcium 8.4 MG/DL (8.5-10.1); Osmolality,Calculated 294.6 MOS/KG (273-304); Potassium 4.8 MMOL/L (3.5-5.1)
[2016-12-03 06:51] LABS: Basophils % 0.1 % (0.0-0.8); Hematocrit 39.3 VOL% (42.0-52.0); Hemoglobin 11.3 GM/DL (14.0-18.0); Immature Granulocytes % 0.7 %; Immature Granulocytes Absolute 0.08 #; Lymphocytes # 0.5 10*3/uL (1.4-4.0); Lymphocytes % 4.4 % (21.2-54.2); Mean Corpuscular HGB Conc 28.8 GM/DL (32-36); Mean Corpuscular Hemoglobin 23 PG (27-34); Mean Corpuscular Volume 81.4 FL (87-102); Mean Platelet Volume 10.4 FL (9.6-12.0); Monocytes # 0.2 10*3/uL (0.11-0.8); Monocytes % 2.2 % (1.7-12.7); Neutrophils % 92.6 % (38.7-73.9); Red Blood Count 4.83 MC/CUMM (3.8-5.5); Red Cell Distribution Width 23.8 % (9.3-17.3); White Blood Count 10.8 T/CUMM (4-12)
[2016-12-03 06:57] LABS: Platelet Count 101 T/CUMM (130-400)
[2016-12-03 07:17] LABS: Hypochromasia 2+; Lymphocytes 4 % (20-55); Segmented Neutrophils 95 % (50-85); Total Cells Counted 100
[2016-12-03 07:18] LABS: Microcytosis 1+; Ovalocytes Slight; Platelet Estimate Decreased
[2016-12-03] MEDS ORDERED: PANTOPRAZOLE 40 MG VIAL IV SCH (09:00)
[2016-12-03] MEDS: THIAMINE 100 MG TABLET PO SCH (09:07)
[2016-12-03] MEDS: PHENYTOIN ER 100 MG CAPSULE PO SCH ×2 (09:07→21:13)
[2016-12-03] MEDS: FOLIC ACID 1 MG TABLET PO SCH (09:07)
[2016-12-03] MEDS: chlordiazePOXIDE 10 MG CAPSULE PO SCH (09:08)
[2016-12-03] MEDS: NICOTINE 21 MG/24 HR PATCH TRANSDERM PRN (09:09)
--- NOTE | 2016-12-03 09:47 | Gastrointestinal Progress Note ---
<Alma Leon - Last Filed: 12/03/16 09:45> Assessment and Plan (1) Abdominal pain Status: Acute Assessment and plan: 12/03-Hgb stable at 11.3. No reports of bleeding. Tolerating soft diet. Plan and addendum to follow by Dr Munoz. 12/02-EGD findings noted. Hemoglobin stable at 10.3. To be transferred to floor today. Advance to full liquids. Plan an addendum to follow by Dr. Munoz. Current Visit: Yes Gastroenterology - PN: Subj Interval history: CC: Anemia, abd pain Pt is seen awake and alert sitting on side of bed. States he is feeling some better today. Denies he had some mild abdominal pain this morning after eating but this is now resolved. Denies any nausea or vomiting. Abdomen is soft, nontender. Hemoglobin is stable at 11.3. ROS: Denies SOB or chest pain Exam (Progress Note) - Constitutional Vitals: Period Temp Pulse Resp BP Sys/Wolff Pulse Ox Last 24 Hr 97.8 F-99.6 F 55-90 17-25 124-160/60-85 91-100 General appearance: normal weight, no acute distress - Head Head exam: Present: normal inspection, normocephalic - Eye Eye exam: Present: other (lids and conjunctiva unremarakble). Absent: scleral icterus - ENT ENT exam: Present: normal exam, normal oropharynx - Neck Neck exam: Present: normal inspection - Respiratory Respiratory exam: Present: clear to auscultation bilaterally. Absent: rales, rhonchi, wheezes - Cardiovascular Cardiovascular exam: Present: regular rate and rhythm. Absent: diastolic murmur , JVD, systolic murmur - GI/Abdominal GI/Abdominal exam: Present: normal bowel sounds, soft. Absent: ascites, distended, mass, organomegaly, tenderness - Extremities Exam Extremities exam: Present: normal inspection, full ROM - Back Exam Back exam: Present: normal inspection - Neurological Exam Neurological exam: Present: alert, oriented X3 - Psychiatric Psychiatric exam: Present: normal affect, normal mood - Skin Skin exam: Present: normal color, warm, dry Results - Labs CBC & BMP: 12/03/16 04:54 12/03/16 04:54 Lab Results: I have reviewed the past 24 hour labs <Paulino Munoz - Last Filed: 12/03/16 13:30> Exam (Progress Note) - Constitutional Vitals: Period Temp Pulse Resp BP Sys/Wolff Pulse Ox Last 24 Hr 97.8 F-98.7 F 55-90 17-25 124-156/60-83 91-99 Results - Labs CBC & BMP: 12/03/16 04:54 12/03/16 04:54
[2016-12-03] MEDS ORDERED: FUROSEMIDE 40 MG/4 ML VIAL IV ONE (10:31)
[2016-12-03] MEDS ORDERED: chlordiazePOXIDE 10 MG CAPSULE PO PRN (10:47)
--- NOTE | 2016-12-03 11:33 | XRay Report ---
XR chest 1V portable Indication: Possible fluid overload Comparison: Chest x-ray dated November 30, 2016 Technique: Single frontal view of the chest Findings: Continued cardiomegaly. Mildly increased bilateral pulmonary interstitial prominence suggesting mildly progressed interstitial pulmonary edema. Small bilateral pleural fluid not excluded. Osseous and surrounding soft tissue structures appear grossly unchanged. IMPRESSION: As above. PROCEDURE INTERPRETED AT [facility] DEPARTMENT OF RADIOLOGY Final Report Signed by: Dr Reynold Amin
--- NOTE | 2016-12-03 14:41 | Hospitalist Progress Note ---
Assessment and Plan (1) GI bleed Status: Acute Assessment and plan: 1)UGIB with acute blood loss anemia from gastitis and erosive esophagitis duodenitis- advance diet. on protonix BID now and will need follow up with GI in 6 weeks for repeat EGD. 2)alcohol dependence and addiction with withdrawal symptoms- managed with librium- dose decreased and changed to prn. watch level of drowsiness. He wants alcohol rehab- sw working on it- may be able to go to [facility] now that we have confirmed he was drinking for them. 3)HTN- controlled 4)snuff user- has nicotine patch. 5)hypoxia, low sats, edema- volume overload, mild. Lasix IV and heplock IV. PPI infusion stopped. Current Visit: Yes (2) Alcoholism /alcohol abuse Status: Acute Current Visit: Yes (3) Hematochezia Status: Acute Current Visit: Yes (4) Abdominal pain Status: Acute Current Visit: Yes (5) Other specified counseling Status: Acute Current Visit: Yes (6) Hypotension Status: Acute Current Visit: Yes (7) Acute renal failure Status: Acute Current Visit: Yes (8) Hyperkalemia Status: Acute Current Visit: Yes (9) Acute blood loss anemia Status: Acute Current Visit: Yes (10) Seizures Status: Chronic Current Visit: Yes Hospitalist: Subjective Interval history: Mr Marcum is a little drowsy this morning. We had some temporary confusion whenSW reported [facility] refused him because he hadn't had alcohol in 2 weeks. We contacted his bronther who reconfirmed he was drinking the day before admission. I decreased his Librium and we'll monitor his alertness. No tremor. He has sats today of around 90% on 2L NC and trace edema. He has been receiving IVF which were stopped and I have given Lasix IV. Exam - Constitutional Vitals: Period Temp Pulse Resp BP Sys/Wolff Pulse Ox Last 24 Hr 97.8 F-98.7 F 62-90 17-25 124-156/60-83 91-98 General appearance: normal weight, no acute distress - Head Head exam: Present: normocephalic, atraumatic - Eye Eye exam: Present: EOMI. Absent: scleral icterus Pupils: Present: BROCK - Respiratory Respiratory exam: Present: rales (few at bases) - Cardiovascular Cardiovascular exam: Present: regular rate and rhythm - GI/Abdominal GI/Abdominal exam: Present: normal bowel sounds, soft. Absent: tenderness - Extremities Exam Extremities exam: Present: edema (trace LE edema) - Neurological Exam Neurological exam: Present: altered (drowsy but oriented. told us his last drink was a month ago.) - Skin Skin exam: Present: warm, dry Results - Labs CBC & BMP: 12/03/16 04:54 12/03/16 04:54 Lab Results: I have reviewed the past 24 hour labs
[2016-12-04] MEDS: ALBUTEROL/IPRATROPIUM 3 ML NEB RESP TX SCH ×6 (03:36→23:43)
[2016-12-04] MEDS ORDERED: PANTOPRAZOLE 40 MG VIAL IV SCH (06:00)
[2016-12-04 06:12] LABS: Basophils % 0.1 % (0.0-0.8); Eosinophils % 0.1 % (0.00-10.9); Hemoglobin 10.7 GM/DL (14.0-18.0); Immature Granulocytes % 0.8 %; Immature Granulocytes Absolute 0.08 #; Lymphocytes # 0.7 10*3/uL (1.4-4.0); Lymphocytes % 6.2 % (21.2-54.2); Mean Corpuscular Hemoglobin 24 PG (27-34); Mean Corpuscular Volume 81.3 FL (87-102); Mean Platelet Volume 9.3 FL (9.6-12.0); Monocytes # 0.4 10*3/uL (0.11-0.8); Monocytes % 3.5 % (1.7-12.7); Neutrophils # 9.3 10*3/uL (1.4-7.4); Neutrophils % 89.3 % (38.7-73.9); Platelet Count 149 T/CUMM (130-400); Red Blood Count 4.54 MC/CUMM (3.8-5.5); White Blood Count 10.4 T/CUMM (4-12)
[2016-12-04 06:14] LABS: Hematocrit 36.7 VOL% (42.0-52.0)
[2016-12-04 06:16] LABS: Elliptocytes Few; Hypochromasia 1+; Platelet Estimate Normal
[2016-12-04 06:17] LABS: Microcytosis Slight
[2016-12-04] MEDS: NICOTINE 21 MG/24 HR PATCH TRANSDERM PRN (09:04)
[2016-12-04] MEDS: THIAMINE 100 MG TABLET PO SCH (09:04)
[2016-12-04] MEDS: PHENYTOIN ER 100 MG CAPSULE PO SCH ×2 (09:04→20:57)
[2016-12-04] MEDS: FOLIC ACID 1 MG TABLET PO SCH (09:04)
[2016-12-04] MEDS: methylPREDNISolone SOD SUC 125 MG/2 ML VIAL IV SCH (09:05)
--- NOTE | 2016-12-04 12:50 | Discharge Summary ---
Hospital Course - Hospital Course Hospital Course: Mr. Marcum is a 66 year old male who was admitted on 11/30/2016 with shortness of breath and GI bleed. He was transfused with 2 units of PRBC for blood loss anemia and GI was consulted. Patient underwent an EGD on 12/01/2016 and was found to have erosive esophagitis, gastritis and duodenitis, all believed to be related to NSAID abuse and alcoholism. He was started on protonix BID and Librium to manage alcohol withdrawal symptoms. Patient's hypoxia was due to mild volume overload. He was started on Lasix IV. The remainder of his hospital course was uncomplicated. He has reached maximum benefit from hospitalization at this time. He will be discharged home today with home PT. - Time spent with patient Time with patient DS: Greater than 30 minutes Discharge Plan - Discharge Medications No Action Tramadol HCl [Tramadol Tab] 50 mg PO BID amLODIPine [Norvasc] 10 mg PO DAILY Phenytoin ER Cap [Dilantin Cap] 200 mg PO BID Albuterol Inhaler [Proventil Inhaler] 2 puff INH Q6H PRN PRN Reason: Shortness Of Breath/Wheezing Simvastatin 40 mg PO DAILY Omeprazole 20 mg PO DAILY Lisinopril/Hydrochlorothiazide [Lisinopril-Hctz 10-12.5 mg Tab] 1 each PO BID ALPRAZolam [Xanax] 0.5 mg PO BEDTIME Aspirin [Ecotrin] 81 mg PO DAILY hydrALAZINE TAB [Apresoline Tab] 50 mg PO BID Carvedilol [Coreg] 6.25 mg PO BID - Follow Up or Referral - Forms/Instructions Exam - Constitutional Vitals: Period Temp Pulse Resp BP Sys/Wolff Pulse Ox Last 24 Hr 97.5 F-98.6 F 70-92 16-20 117-133/58-93 93-98 Discharge Results Labs on day of discharge: Labs from last 24 hours 12/04/16 04:26 WBC 10.4 RBC 4.54 Hgb 10.7 L Hct 36.7 L MCV 81.3 L MCH 24 L MCHC 29.0 L RDW 24.0 H Plt Count 149 D MPV 9.3 L Neut % (Auto) 89.3 H Lymph % (Auto) 6.2 L Bracken % (Auto) 3.5 Eos % (Auto) 0.1 Baso % (Auto) 0.1 Neut # (Auto) 9.3 H Lymph # (Auto) 0.7 L Bracken # (Auto) 0.4 Eos # (Auto) 0.0 Baso # (Auto) 0.0 Immature Gran % 0.8 Nucleated RBC % 0.0 Immature Gran # 0.08 Nucleated RBCs # 0.00 Platelet Estimate Normal Hypochromasia 1+ Microcytosis Slight Elliptocytes Few Morphology Comment DS: Provider Date of admission: 11/30/16 01:50 Primary care physician: . No PCP Attending physician on admission: Johny Gilliland MD Consults: 11/30/16 03:21 Consult to Physician [CONS] Routine Comment: ugi bleed severe epigastric pain Consulting Provider: Claude Zhao V Consult to Specialist Group: Gastroenterology When should Consulting Provider be notified: In am Person Notified: Dr. Zhao Date Notified: 11/30/16 Time Notified: 10:45 11/30/16 03:39 Consult to Dietitian [CONS] Routine Reason for Dietitian: Dietary Consult 12/02/16 10:21 Consult to Case Mgmt/Social Srvs [CONS] Routine Reason for Case Mgmt/Social Srvs: Other Consult Comment: alcohol rehab 12/04/16 11:10 Consult to Physical Therapy [CONS] Routine Reason for Physical Therapy: Evaluate and Treat Start Therapy: Today Consult Comment: STAT Discharging clinician: Josh OMHAMUD Expected date of discharge: 12/04/16
--- NOTE | 2016-12-04 14:45 | Hospitalist Progress Note ---
Assessment and Plan (1) GI bleed Status: Acute Assessment and plan: 1)UGIB with acute blood loss anemia from gastitis and erosive esophagitis duodenitis- advance diet. on protonix BID now and will need follow up with GI in 6 weeks for repeat EGD. 2)alcohol dependence and addiction with withdrawal symptoms- He has not required any librium since it was changed to prn yesterday. He is back to his MS baseline, more alert than yesterday. 3)HTN- controlled 4)snuff user- has nicotine patch. 5)hypoxia, low sats, edema- edema resolved, sats good with O2 as he uses at home. 6)discharge plan- to swing bed tomorrow. Current Visit: Yes (2) Alcoholism /alcohol abuse Status: Acute Current Visit: Yes (3) Hematochezia Status: Acute Current Visit: Yes (4) Abdominal pain Status: Acute Current Visit: Yes (5) Other specified counseling Status: Acute Current Visit: Yes (6) Hypotension Status: Acute Current Visit: Yes (7) Acute renal failure Status: Acute Current Visit: Yes (8) Hyperkalemia Status: Acute Current Visit: Yes (9) Acute blood loss anemia Status: Acute Current Visit: Yes (10) Seizures Status: Chronic Current Visit: Yes Hospitalist: Subjective Interval history: Mr Marcum was planning to go home with home PT as her preferred - he did not want to stay anywhere for alcohol or physical therapy. However when his family came to get him his sats were low because he took his oxygen off- it came up as expected when his O2 was replaced, and the family after watching him said he was too weak for them to take care of at home and left. He has now agreed to go to swing bed tomorrow. Exam - Constitutional Vitals: Period Temp Pulse Resp BP Sys/Wolff Pulse Ox Last 24 Hr 97.5 F-98.6 F 70-92 16-20 117-160/58-93 93-98 General appearance: normal weight, no acute distress - Eye Eye exam: Present: EOMI. Absent: scleral icterus - Respiratory Respiratory exam: Present: clear to auscultation bilaterally - Cardiovascular Cardiovascular exam: Present: regular rate and rhythm - GI/Abdominal GI/Abdominal exam: Present: normal bowel sounds, soft. Absent: tenderness - Extremities Exam Extremities exam: Absent: edema - Neurological Exam Neurological exam: Present: alert, oriented X3 Results - Labs CBC & BMP: 12/04/16 04:26 12/03/16 04:54 Lab Results: I have reviewed the past 24 hour labs Specialty Discharge - Follow Up or Referrals Follow up with: Paulino Munoz MD [Physician] - 05/06/17 8:30 am (REPEAT EGD IN 6MONTHS WITH DR MUNOZ WILL BE ON May AT 830AM-AT [facility]-CHECK INTO ADMISSIONS AT 830AM DO NOT EAT OR DRINK ANYTHING AFTER MIDNIGHT)
[2016-12-04] MEDS: PANTOPRAZOLE 40 MG TABLET PO SCH (20:57)
[2016-12-05] MEDS: methylPREDNISolone SOD SUC 125 MG/2 ML VIAL IV SCH ×2 (00:18→09:19)
[2016-12-05] MEDS: ALBUTEROL/IPRATROPIUM 3 ML NEB RESP TX SCH ×3 (05:05→11:09)
[2016-12-05] MEDS: PHENYTOIN ER 100 MG CAPSULE PO SCH (09:22)
[2016-12-05] MEDS: FOLIC ACID 1 MG TABLET PO SCH (09:22)
[2016-12-05] MEDS: PANTOPRAZOLE 40 MG TABLET PO SCH (09:22)
[2016-12-05] MEDS: THIAMINE 100 MG TABLET PO SCH (09:22)
[2016-12-05] MEDS: NICOTINE 21 MG/24 HR PATCH TRANSDERM PRN (09:24)
[2016-12-05 13:14] VITALS: BP 131/89
== END 2016-12-05 14:10 | disposition swing bed (61) | DRG 381 ==
LOC: N.ED 22:54 → N.EDINP 11-30 01:50 → SUATTDRO 11-30 01:50 → N.4E 11-30 02:30 → N.CC 11-30 09:52 → N.4E 12-02 21:49
PROVIDERS: ADMIT Internal Medicine Infectious Disease; ATTEND Internal Medicine